=== PATIENT | male | born 1935 | race Caucasian/White ===

== ENCOUNTER 2020-08-01 20:10 | Inpatient (IN) | payer OTHER ==
[~2020-08-01] VITALS: Ht 174 cm; Wt 85.9 kg
[2020-08-01 21:32] LABS: BASOPHIL 0.2 % (0-2); EOSINOPHIL 0.5 % (0-7); HCT 42.2 % (42.0-52.0); LYMPHOCYTE 2.9 % (15-48); MCH 30.6 pg (25.0-31.0); MCHC 30.8 g/dL (32.0-36.0); MCV 99.3 fL (78.0-100.0); MONOCYTE 4.7 % (0-12); NRBC 0; PLT 258 K/uL (150-400); RBC 4.25 M/uL (4.70-6.00); RDW 15.1 % (11.5-14.0)
[2020-08-01 21:36] LABS: NEUTROPHIL 91.2 % (41-80)
[2020-08-01 22:01] LABS: BILIRUBIN - TOTAL 0.4 mg/dL (0.2-1.0); BUN/CREAT RATIO (CALC) 27.7 RATIO; CREATININE 1.55 mg/dL (0.67-1.17); GLOBULIN (CALCULATION) 4.3 g/dL; POTASSIUM 5.4 mmol/L (3.5-5.1); TOTAL PROTEIN 7.3 g/dL (6.4-8.2)
[2020-08-01 22:05] LABS: LACTIC ACID 2.3 mmol/L (0.4-1.9)
[2020-08-01 23:09] LABS: BILIRUBIN NEGATIVE (NEGATIVE); BLOOD NEGATIVE Ery/uL (NEGATIVE); CLARITY CLEAR (CLEAR); COLOR YELLOW (YELLOW); GLUCOSE (U) NORMAL (NORMAL); LEUKOCYTES NEGATIVE Leu/uL (NEGATIVE); NITRITE NEGATIVE (NEGATIVE); PROTEIN TRACE (LOW) mg/dL (NEGATIVE); SPECIFIC GRAVITY 1.025 (1.001-1.030); UROBILINOGEN 0.2 mg/dL (0.2-1.0); pH 5.5 (5.0-9.0)
[2020-08-01 23:21] LABS: URINARY WBC RARE
[2020-08-01 23:22] LABS: AMORPHOUS URATES CRYSTALS LARGE; BACTERIA TRACE; MUCOUS TRACE
[2020-08-02 00:18] LABS: HCT 35.3 % (42.0-52.0); HGB 11.2 g/dL (13.2-18.0)
[2020-08-02] MEDS ORDERED: LEVAQUIN750 MG PO (01:43)
[2020-08-02] MEDS ORDERED: DEPAKOTE250 MG PO (01:44)
[2020-08-02] MEDS ORDERED: TRAMADOL HCL50 MG PO (01:44)
[2020-08-02] MEDS ORDERED: FINASTERIDE5 MG PO (01:45)
[2020-08-02] MEDS ORDERED: FLOMAX0.4 MG PO (01:45)
[2020-08-02] MEDS ORDERED: FEOSOL325 MG PO (01:45)
[2020-08-02] MEDS ORDERED: LASIX20 MG PO (01:46)
[2020-08-02] MEDS ORDERED: ZERVIATE1 EACH PO (01:46)
[2020-08-02] MEDS ORDERED: ASPIRIN EC81 MG PO (01:46)
[2020-08-02] MEDS ORDERED: EQL SENNA-S TA1 EACH PO (01:49)
[2020-08-02] MEDS ORDERED: POTASSIUM CHLOR8 MEQ PO (01:50)
[2020-08-02] MEDS ORDERED: SYNTHROID125 MCG PO (01:50)
[2020-08-02] MEDS ORDERED: REMERON15 MG PO (01:51)
[2020-08-02] MEDS ORDERED: COLACE100 MG PO (01:51)
[2020-08-02] MEDS ORDERED: ZOCOR20 MG PO (01:52)
[2020-08-02] MEDS ORDERED: PROAIR HFA8.5 GM INH (01:53)
[2020-08-02] MEDS ORDERED: MILK OF MA400 MG/5 M PO (01:54)
[2020-08-02] MEDS ORDERED: GAS-X125 MG PO (01:55)
[2020-08-02] MEDS ORDERED: BENZONATATE100 MG PO (01:56)
[2020-08-02] MEDS ORDERED: ACETAMINOPHEN500 MG PO (01:57)
--- NOTE | 2020-08-02 02:07 | NUR ---
PT ARRIVED TO UNIT, [facility] CALLD REPORT TO [place] GILMORE, NO S/S DISTRESS AT THIS TIME, PT COMPLAINTS OF NO PAIN OR ANYTHING AT THIS TIME, NO N/V REPORTED
[2020-08-02 06:34] LABS: BASOPHIL 0.3 % (0-2); EOSINOPHIL 0.1 % (0-7); HCT 36.1 % (42.0-52.0); HGB 11.5 g/dl (13.2-18.0); LYMPHOCYTE 8.2 % (15-48); MCH 31.6 pg (25.0-31.0); MCHC 31.9 g/dL (32.0-36.0); MCV 99.2 fL (78.0-100.0); MONOCYTE 5.1 % (0-12); MPV 10.8 fL (6.0-9.5); NEUTROPHIL 85.7 % (41-80); NRBC 0; PLT 223 K/uL (150-400); RBC 3.64 M/uL (4.70-6.00); RDW 15.1 % (11.5-14.0); WBC 11.4 K/uL (4.0-10.5)
[2020-08-02 06:54] LABS: ALBUMIN 2.4 g/dL (3.4-5.0); BILIRUBIN - TOTAL 0.3 mg/dL (0.2-1.0); BUN/CREAT RATIO (CALC) 24.4 RATIO; CREATININE 1.56 mg/dL (0.67-1.17); GLOBULIN (CALCULATION) 3.1 g/dL; POTASSIUM 5.1 mmol/L (3.5-5.1); TOTAL PROTEIN 5.5 g/dL (6.4-8.2)
--- NOTE | 2020-08-02 09:46 | NUR ---
08/02/20 [facility] will accept patient back per Mayte Antoine. Gunjan Katz, daughter, also wishes for patient to return to [facility].
[2020-08-02 15:45] LABS: FLU B NEGATIVE B (NEGATIVE B)
[2020-08-03 10:33] LABS: HCT 35.1 % (42.0-52.0); MCH 30.9 pg (25.0-31.0); MCHC 31.3 g/dL (32.0-36.0); MCV 98.6 fL (78.0-100.0); MPV 10.7 fL (6.0-9.5); RBC 3.56 M/uL (4.70-6.00); WBC 7.1 K/uL (4.0-10.5)
[2020-08-03 11:21] LABS: BUN/CREAT RATIO (CALC) 25.8 RATIO; CREATININE 1.32 mg/dL (0.67-1.17); POTASSIUM 4.2 mmol/L (3.5-5.1)
--- NOTE | 2020-08-03 12:06 | NUR ---
PT TAKEN OFF UNIT VIA STRETCHER ON O2 BY OR STAFF @ [id number]
[2020-08-04] MEDS ORDERED: PROTONIX 40MG T40 MG PO (13:53)
[2020-08-04] MEDS ORDERED: CEFDINIR300 MG PO (13:53)
[2020-08-04] MEDS ORDERED: TRAMADOL HCL50 MG PO (13:53)
== END 2020-08-04 19:59 | DRG 871 ==
LOC: FER 20:10 → FTCU 08-02 00:04
PROVIDERS: Emergency Medicine Emergency Medical Services; Nurse Practitioner; Student in an Organized Health Care Education/Training Program; ADMIT Internal Medicine
PROC: 0DB98ZX Excision of Duodenum, Via Natural or Artificial Opening Endoscopic, Diagnostic (ICD-10-PCS; 2020-08-03)
PROC: 0DB68ZX Excision of Stomach, Via Natural or Artificial Opening Endoscopic, Diagnostic (ICD-10-PCS; 2020-08-03)
PROC: 0W3P8ZZ Control Bleeding in Gastrointestinal Tract, Via Natural or Artificial Opening Endoscopic (ICD-10-PCS; principal; 2020-08-03 12:00)
DX: A41.9 Sepsis, unspecified organism (principal); J15.9 Unspecified bacterial pneumonia; K26.4 Chronic or unspecified duodenal ulcer with hemorrhage; N17.9 Acute kidney failure, unspecified; J96.11 Chronic respiratory failure with hypoxia; N28.89 Other specified disorders of kidney and ureter; Z20.822 Contact with and (suspected) exposure to COVID-19; T39.015A Adverse effect of aspirin, initial encounter; Z86.16 Personal history of COVID-19; G30.9 Alzheimer's disease, unspecified; F02.80 Dementia in other diseases classified elsewhere, unspecified severity, without behavioral disturbance, psychotic disturbance, mood disturbance, and anxiety; I50.9 Heart failure, unspecified; I11.0 Hypertensive heart disease with heart failure; G89.29 Other chronic pain; I25.10 Atherosclerotic heart disease of native coronary artery without angina pectoris; G47.30 Sleep apnea, unspecified; R65.20 Severe sepsis without septic shock; Z86.12 Personal history of poliomyelitis; Z90.49 Acquired absence of other specified parts of digestive tract; Z98.890 Other specified postprocedural states; Z88.0 Allergy status to penicillin; Z88.5 Allergy status to narcotic agent; Z88.8 Allergy status to other drugs, medicaments and biological substances; Z79.82 Long term (current) use of aspirin; Z79.899 Other long term (current) drug therapy; Z87.891 Personal history of nicotine dependence
CPT/HCPCS: 36415; 36600; 71250; 80048; 80053; 81001; 82150; 82803; 82962; 83605; 83690; 83880; 84145; 84484; 85014; 85018; 85025; 87040; 87088; 87804; 87899; 88305; 93005; 94640; 97110; 97162; 97166; 97530; 97530-GP; 97535; C9113; J0692; J2405; J2704; J7030; J7050; J7120; U0002

== ENCOUNTER 2020-10-23 10:11 | Emergency (ER) | payer OTHER ==
[~2020-10-23 10:11] MED LIST: ACETAMINOPHEN500 MG PO; ASPIRIN EC81 MG PO; BENZONATATE100 MG PO; CEFDINIR300 MG PO; COLACE100 MG PO; DEPAKOTE250 MG PO; EQL SENNA-S TA1 EACH PO; FEOSOL325 MG PO; FINASTERIDE5 MG PO; FLOMAX0.4 MG PO; GAS-X125 MG PO; LASIX20 MG PO; LEVAQUIN750 MG PO; MILK OF MA400 MG/5 M PO; POTASSIUM CHLOR8 MEQ PO; PROAIR HFA8.5 GM INH; PROTONIX 40MG T40 MG PO; REMERON15 MG PO; SYNTHROID125 MCG PO; TRAMADOL HCL50 MG PO; ZERVIATE1 EACH PO; ZOCOR20 MG PO
[2020-10-23 12:13] LABS: BASOPHIL 0.8 % (0-2); EOSINOPHIL 6.9 % (0-7); HCT 40.7 % (42.0-52.0); HGB 12.9 g/dl (13.2-18.0); LYMPHOCYTE 15.9 % (15-48); MCH 30.2 pg (25.0-31.0); MCHC 31.7 g/dL (32.0-36.0); MCV 95.3 fL (78.0-100.0); MONOCYTE 5.6 % (0-12); NEUTROPHIL 70.5 % (41-80); NRBC 0; PLT 249 K/uL (150-400); RBC 4.27 M/uL (4.70-6.00); RDW 14.6 % (11.5-14.0); WBC 6.6 K/uL (4.0-10.5)
[2020-10-23 12:25] LABS: BILIRUBIN NEGATIVE (NEGATIVE); BLOOD TRACE-INTACT Ery/uL (NEGATIVE); CLARITY CLEAR (CLEAR); COLOR YELLOW (YELLOW); GLUCOSE (U) NORMAL (NORMAL); LEUKOCYTES NEGATIVE Leu/uL (NEGATIVE); NITRITE NEGATIVE (NEGATIVE); PROTEIN NEGATIVE (NEGATIVE); UROBILINOGEN 0.2 mg/dL (0.2-1.0); pH 5.5 (5.0-9.0)
[2020-10-23 12:33] LABS: BILIRUBIN - TOTAL 0.3 mg/dL (0.2-1.0); BUN/CREAT RATIO (CALC) 28.9 RATIO; CREATININE 1.9 mg/dL (0.67-1.17); GLOBULIN (CALCULATION) 4.8 g/dL; POTASSIUM 5.3 mmol/L (3.5-5.1); TOTAL PROTEIN 7.8 g/dL (6.4-8.2)
== END 2020-10-23 15:07 | disposition home or self-care (01) ==
LOC: FER 10:11
PROVIDERS: Emergency Medicine
DX: F03.90 Unspecified dementia, unspecified severity, without behavioral disturbance, psychotic disturbance, mood disturbance, and anxiety (principal); E11.9 Type 2 diabetes mellitus without complications; I10 Essential (primary) hypertension; Z95.5 Presence of coronary angioplasty implant and graft; Z90.49 Acquired absence of other specified parts of digestive tract; Z88.0 Allergy status to penicillin; Z88.6 Allergy status to analgesic agent; Z88.5 Allergy status to narcotic agent
CPT/HCPCS: 36415; 70450; 80053; 81001; 85025